=== PATIENT | female | born 1995 | race Caucasian/White ===

== ENCOUNTER 2023-04-11 16:11 | Emergency (ER) | payer OTHER ==
[2023-04-11 16:44] VITALS: RESP 20; TEMP 98.2
[2023-04-11] MEDS ORDERED: Zofran 4 MG/2 ML VIAL IV ONE (17:04)
[2023-04-11] MEDS ORDERED: MORPHINE SULFATE 4 MG INJ IV ONE (17:04)
[2023-04-11] MEDS ORDERED: Sodium Chloride 0.9% 1000 ML 1,000 ML IV STA (17:04)
[2023-04-11] MEDS ORDERED: Zofran 4 MG/2 ML VIAL ONE (17:13)
[2023-04-11] MEDS ORDERED: MORPHINE SULFATE 4 MG INJ ONE (17:13)
[2023-04-11] MEDS ORDERED: Sodium Chloride 0.9% 1000 ML 1,000 ML ONE (17:14)
--- NOTE | 2023-04-11 17:17 | ERPHSYRPT ---
- History of Present Illness Source: patient Exam Limitations: no limitations Patient Subjective Stated Complaint: PT states "I have not pee'd for two days. It feels like I need to but I cannot. I am having pain on my right belly." Triage Nursing Assessment: Pt presented alert and oriented X 3, skin pwd Pt ambulates with an upright steady gait, able to speak in clear full sentences. Hx Tetanus, Diphtheria Vaccination/Date Given: No Hx Influenza Vaccination/Date Given: No Hx Pneumococcal Vaccination/Date Given: No Immunizations Up to Date: No <ARIANNA BHAKTA - Last Filed: 04/11/23 17:14> <KARISSA BLAND - Last Filed: 04/11/23 20:44> - History of Present Illness Time Seen by Provider: 04/11/23 16:55 Physician History: Patient is here for lower abdominal pain. Started 2 to 3 days ago. Patient states that she has had difficulty urinating for 2 days. Patient does not bel ieve that she is . No falls or other trauma. Patient states that she did recently get put on a new bipolar medication. Patient does have a flat affect as I discussed her ER visit today with her. (ARIANNA BHAKTA) Allergies/Adverse Reactions: No Known Drug Allergies Allergy (Verified 04/11/23 16:43) Home Medications: Citalopram Hydrobromide [Citalopram HBr] 10 mg PO DAILY 04/11/23 [History] Omeprazole 40 mg PO DAILY 04/11/23 [History] Zolpidem Tartrate 5 mg [Ambien 5 MG Tablet] 5 mg PO HS 04/11/23 [History] Travel Risk - International Travel Have you traveled outside of the country in past 3 weeks: No - Coronavirus Screening Are you exhibiting any of the following symptoms?: No Close contact with a COVID-19 positive Pt in past 14-21 Days: No - Vaccine Status Have you recieved a Covid-19 vaccination: Yes 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 - Vaccination Dates Dates if Unknown: 2020 <ARIANNA BHAKTA - Last Filed: 04/11/23 17:14> - Review of Systems Constitutional: No Fever, No Chills Eyes: No Symptoms Ears, Nose, & Throat: No Symptoms Respiratory: No Cough, No Dyspnea Cardiac: No Chest Pain, No Edema, No Syncope Abdominal/Gastrointestinal: Abdominal Pain, No Nausea, No Vomiting, No Diarrhea Genitourinary Symptoms: Dysuria Musculoskeletal: No Back Pain, No Neck Pain Skin: No Rash Neurological: No Dizziness, No Focal Weakness, No Sensory Changes Psychological: No Symptoms Endocrine: No Symptoms All Other Systems: Reviewed and Negative <ARIANNA BHAKTA - Last Filed: 04/11/23 17:14> - Past Medical History Pertinent Past Medical History: Yes Psycho-Social History: Bipolar - Past Surgical History Past Surgical History: No - Social History Smoking Status: Current every day smoker How long have you smoked: years Exposure to second hand smoke: Yes Drug Use: none Patient Lives Alone: No - Female History Hx Last Menstrual Period: 03/20/2023 Hx Now: No <ARIANNA BHAKTA - Last Filed: 04/11/23 17:14> - Physical Exam General Appearance: no apparent distress, alert Eye Exam: PERRL/EOMI, eyes nml inspection Ears, Nose, Throat Exam: normal ENT inspection, TMs normal, pharynx normal, moist mucous membranes Neck Exam: normal inspection, non-tender, supple, full range of motion Respiratory Exam: normal breath sounds, lungs clear, No respiratory distress Cardiovascular Exam: regular rate/rhythm, normal heart sounds, normal peripheral pulses Gastrointestinal/Abdomen Exam: soft, normal bowel sounds, tenderness, other (Very mild lower abdominal tenderness to palpation without rebound or guarding), No mass Back Exam: normal inspection, normal range of motion, No CVA tenderness, No vertebral tenderness Extremity Exam: normal inspection, normal range of motion, pelvis stable Neurologic Exam: alert, oriented x 3, cooperative, normal mood/affect, nml cerebellar function, nml station & gait, sensation nml, No motor deficits Skin Exam: normal color, warm, dry, No rash Lymphatic Exam: No adenopathy SpO2: 95 <ARIANNA BHAKTA - Last Filed: 04/11/23 17:14> - Nursing Vital Signs Nursing Vital Signs: Initial Vital Signs Temperature 98.2 F 04/11/23 16:38 Pulse Rate 75 04/11/23 16:38 Respiratory Rate 20 04/11/23 16:38 Blood Pressure 126/79 04/11/23 16:38 O2 Sat by Pulse Oximetry 95 04/11/23 16:38 Pain Scale Pain Intensity 8 - Course Nursing assessment & vital signs reviewed: Yes <ARIANNA BHAKTA - Last Filed: 04/11/23 17:14> - CT Exams Abdomen/Pelvis CT Interpretation: Negative, Other (Reviewed by me) <KARISSA BLAND - Last Filed: 04/11/23 20:44> Ordered Tests: Active Orders 24 hr Category Date Time Status IV Insertion STAT Care 04/11/23 17:04 Active NPO (ED) STAT Care 04/11/23 17:04 Active ABDOMEN AND PELVIS W CONTRAST [CT] Stat Exams 04/11/23 17:05 Taken CBC W DIFF Stat Lab 04/11/23 17:04 Completed CMP Stat Lab 04/11/23 17:04 Completed HCG QUALITATIVE, SERUM Stat Lab 04/11/23 Completed UA W/RFX UR CULTURE Stat Lab 04/11/23 19:30 Completed Urine Triage Profile Stat Lab 04/11/23 19:30 Completed Medication Summary Discontinued Medications Generic Name Dose Route Start Last Admin Trade Name Freq PRN Reason Stop Dose Admin Sodium Chloride 1,000 mls @ 999 mls/hr 04/11/23 17:04 04/11/23 18:43 Sodium Chloride 0.9% 1000 Ml IV 04/11/23 18:04 Infused .Q1H1M STA Infusion Sodium Chloride Confirm 04/11/23 17:14 Sodium Chloride 0.9% 1000 Ml Administered 04/11/23 17:15 Dose 1,000 mls @ ud .ROUTE .STK-MED ONE Metoclopramide HCl 10 mg 04/11/23 20:14 04/11/23 20:22 Metoclopramide Hcl 10 Mg/2 Ml Vial IV 04/11/23 20:15 10 mg STAT ONE Administration Metoclopramide HCl Confirm 04/11/23 20:21 Metoclopramide Hcl 10 Mg/2 Ml Vial Administered 04/11/23 20:22 Dose 10 mg .ROUTE .STK-MED ONE Morphine Sulfate 4 mg 04/11/23 17:04 04/11/23 17:16 Morphine Sulfate 4 Mg/Ml Injection IV 04/11/23 17:05 4 mg STAT ONE Administration Morphine Sulfate Confirm 04/11/23 17:13 Morphine Sulfate 4 Mg/Ml Injection Administered 04/11/23 17:14 Dose 4 mg .ROUTE .STK-MED ONE Ondansetron HCl 4 mg 04/11/23 17:04 04/11/23 17:17 Ondansetron Hcl 4 Mg/2 Ml Vial IV 04/11/23 17:05 4 mg STAT ONE Administration Ondansetron HCl Confirm 04/11/23 17:13 Ondansetron Hcl 4 Mg/2 Ml Vial Administered 04/11/23 17:14 Dose 4 mg .ROUTE .STK-MED ONE Lab/Rad Data: Laboratory Result Diagrams 04/11/23 17:04 04/11/23 17:04 Laboratory Results 04/11/23 04/11/23 04/11/23 Range/Units Unknown 19:30 19:30 WBC (4.0-10.5) x10^3/uL RBC (4.1-5.4) x10^6/uL Hgb (12.0-16.0) g/dL Hct (35-47) % MCV (78-100) fL MCH (26-32) pg MCHC (32-36) g/dL RDW (11.5-14.0) % Plt Count (150-450) x10^3/uL MPV (7.5-11.0) fL Gran % (36.0-66.0) % Immature Gran % (Auto) (0.00-0.4) % Nucleat RBC Rel Count (0.00-0.1) % Eos # (Auto) (0-0.5) x10^3/uL Immature Gran # (Auto) (0.00-0.03) x10^3u/L Absolute Lymphs (auto) (1.0-4.6) x10^3/uL Absolute Monos (auto) (0.0-1.3) x10^3/uL Absolute Nucleated RBC (0.00-0.01) x10^3u/L Lymphocytes % (24.0-44.0) % Monocytes % (0.0-12.0) % Eosinophils % (0.00-5.0) % Basophils % (0.0-0.4) % Absolute Granulocytes (1.4-6.9) x10^3/uL Basophils # (0-0.4) x10^3/uL Sodium (137-145) mmol/L Potassium (3.5-5.1) mmol/L Chloride (98-107) mmol/L Carbon Dioxide (22-30) mmol/L Anion Gap (5-15) MEQ/L BUN (7-17) mg/dL Creatinine (0.52-1.04) mg/dL Estimated GFR ML/MIN Glucose (74-106) mg/dL Calcium (8.4-10.2) mg/dL Total Bilirubin (0.2-1.3) mg/dL AST (14-36) U/L ALT (0-35) U/L Alkaline Phosphatase (38-126) U/L Serum Total Protein (6.3-8.2) g/dL Albumin (3.5-5.0) g/dL Serum HCG, Qual NEGATIVE (NEGATIVE) Urine Color Yellow (Yellow) Urine Appearance Clear (Clear) Urine pH 5.5 (4.6-8.0) Ur Specific [place] >=1.030 A (1.005-1.030) Urine Protein Negative (Negative) Urine Glucose (UA) Negative (Negative) mg/dL Urine Ketones 15 A (Negative) Urine Blood Negative (Negative) Urine Nitrite Negative (Negative) Urine Bilirubin Negative (Negative) Urine Urobilinogen 1.0 A (0.2) mg/dL Ur Leukocyte Esterase Negative (Negative) U Hyaline Cast (Auto) NONE SEEN (0-2) /LPF Urine Microscopic RBC 0-2 (0-5) /HPF Urine Microscopic WBC 0-2 (0-5) /HPF Ur Epithelial Cells None Seen (None Seen) /HPF Urine Bacteria None Seen (None Seen) /HPF Urine Culture Reflexed NO (NO) Urine Opiates Level POSITIVE (NEGATIVE) Ur Methadone NEGATIVE (NEGATIVE) Urine Barbiturates NEGATIVE (NEGATIVE) Ur Phencyclidine (PCP) NEGATIVE (NEGATIVE) Urine Amphetamine NEGATIVE (NEGATIVE) U Benzodiazepine Level NEGATIVE (NEGATIVE) Urine Cocaine NEGATIVE (NEGATIVE) Urine Marijuana (THC) NEGATIVE (NEGATIVE) 04/11/23 04/11/23 Range/Units 17:04 17:04 WBC 8.4 (4.0-10.5) x10^3/uL RBC 4.85 (4.1-5.4) x10^6/uL Hgb 14.3 (12.0-16.0) g/dL Hct 42.6 (35-47) % MCV 87.8 (78-100) fL MCH 29.5 (26-32) pg MCHC 33.6 (32-36) g/dL RDW 12.6 (11.5-14.0) % Plt Count 219 (150-450) x10^3/uL MPV 11.4 H (7.5-11.0) fL Gran % 63.5 (36.0-66.0) % Immature Gran % (Auto) 0.4 (0.00-0.4) % Nucleat RBC Rel Count 0.0 (0.00-0.1) % Eos # (Auto) 0.20 (0-0.5) x10^3/uL Immature Gran # (Auto) 0.03 (0.00-0.03) x10^3u/L Absolute Lymphs (auto) 2.08 (1.0-4.6) x10^3/uL Absolute Monos (auto) 0.71 (0.0-1.3) x10^3/uL Absolute Nucleated RBC 0.00 (0.00-0.01) x10^3u/L Lymphocytes % 24.8 (24.0-44.0) % Monocytes % 8.5 (0.0-12.0) % Eosinophils % 2.4 (0.00-5.0) % Basophils % 0.4 (0.0-0.4) % Absolute Granulocytes 5.35 (1.4-6.9) x10^3/uL Basophils # 0.03 (0-0.4) x10^3/uL Sodium 138 (137-145) mmol/L Potassium 4.3 (3.5-5.1) mmol/L Chloride 99 (98-107) mmol/L Carbon Dioxide 25 (22-30) mmol/L Anion Gap 17.9 H (5-15) MEQ/L BUN 29 H (7-17) mg/dL Creatinine 1.08 H (0.52-1.04) mg/dL Estimated GFR > 60.0 ML/MIN Glucose 86 (74-106) mg/dL Calcium 9.0 (8.4-10.2) mg/dL Total Bilirubin 0.40 (0.2-1.3) mg/dL AST 24 (14-36) U/L ALT 38 H (0-35) U/L Alkaline Phosphatase 52 (38-126) U/L Serum Total Protein 8.3 H (6.3-8.2) g/dL Albumin 4.9 (3.5-5.0) g/dL Serum HCG, Qual (NEGATIVE) Urine Color (Yellow) Urine Appearance (Clear) Urine pH (4.6-8.0) Ur Specific [place] (1.005-1.030) Urine Protein (Negative) Urine Glucose (UA) (Negative) mg/dL Urine Ketones (Negative) Urine Blood (Negative) Urine Nitrite (Negative) Urine Bilirubin (Negative) Urine Urobilinogen (0.2) mg/dL Ur Leukocyte Esterase (Negative) U Hyaline Cast (Auto) (0-2) /LPF Urine Microscopic RBC (0-5) /HPF Urine Microscopic WBC (0-5) /HPF Ur Epithelial Cells (None Seen) /HPF Urine Bacteria (None Seen) /HPF Urine Culture Reflexed (NO) Urine Opiates Level (NEGATIVE) Ur Methadone (NEGATIVE) Urine Barbiturates (NEGATIVE) Ur Phencyclidine (PCP) (NEGATIVE) Urine Amphetamine (NEGATIVE) U Benzodiazepine Level (NEGATIVE) Urine Cocaine (NEGATIVE) Urine Marijuana (THC) (NEGATIVE) - Progress Progress: improved <ARIANNA BHAKTA - Last Filed: 04/11/23 17:14> - Progress Progress: improved <KARISSA BLAND - Last Filed: 04/11/23 20:44> - Progress Progress Note: 04/11/23 17:16 differential diagnosis includes kidney stone, compression fracture, infection, UTI, triple AAA - basic labs including: CBC, lipase, CMP, UA, urine test - insert IV for fluids, pain meds, nausea control - consider imaging: CT ab/pelvis Patient feels improved with medication. Transfer of care to Dr. Bland at 6 PM. He will follow-up on all labs and imaging, reexamine the patient. Disposition per this. (ARIANNA BHAKTA) Medical Desision Making - Independent Historian Additional History obtained from: Mother - Diagnostic Testing Diagnostic test were ordered, analyzed, and reviewed by me: Yes Radiological Interpretation: Reviewed by me - Risk of complications Low Risk: Low risk of morbidity from additional dx testing or treatment <KARISSA BLAND - Last Filed: 04/11/23 20:44> - Departure Critical Care Time: No <ARIANNA BHAKTA - Last Filed: 04/11/23 17:14> - Departure Departure Disposition: Home <KARISSA BLAND - Last Filed: 04/11/23 20:44> - Departure Clinical Impression: Abdominal pain Condition: Stable Prescriptions: Metoclopramide HCl [Reglan] 10 mg PO Q6H 3 Days #12 tablet
[2023-04-11 17:42] LABS: Absolute Neutrophil Ct (ANC) 5.35 x10^3/uL (1.4-6.9); BASOPHIL % 0.4 % (0.0-0.4); Basophil (Absolute #) 0.03 x10^3/uL (0-0.4); Eosinophil % 2.4 % (0.00-5.0); Hematocrit 42.6 % (35-47); Hemoglobin 14.3 g/dL (12.0-16.0); IMMATURE GRAN # 0.03 x10^3u/L (0.00-0.03); IMMATURE GRAN % 0.4 % (0.00-0.4); Lymphocyte (Absolute #) 2.08 x10^3/uL (1.0-4.6); Lymphocytes % 24.8 % (24.0-44.0); Mean Cell Volume 87.8 fL (78-100); Mean Corpuscular Hemoglobin 29.5 pg (26-32); Mean Corpuscular Hgb Concent. 33.6 g/dL (32-36); Mean Platelet Volume 11.4 fL (7.5-11.0); Monocyte (Absolute #) 0.71 x10^3/uL (0.0-1.3); Monocytes % 8.5 % (0.0-12.0); Neutrophil % 63.5 % (36.0-66.0); Platelet Count 219 x10^3/uL (150-450); Red Blood Count 4.85 x10^6/uL (4.1-5.4); Red Cell Distribution Width 12.6 % (11.5-14.0); White Blood Count 8.4 x10^3/uL (4.0-10.5)
[2023-04-11 17:58] LABS: ALBUMIN 4.9 g/dL (3.5-5.0); ALKALINE PHOSPHATASE 52 U/L (38-126); ANION GAP 17.9 MEQ/L (5-15); BLOOD UREA NITROGEN 29 mg/dL (7-17); CHLORIDE 99 mmol/L (98-107); Carbon Dioxide 25 mmol/L (22-30); Creatinine 1 1.08 mg/dL (0.52-1.04); EST GLOMERULAR FILTRATION RATE > 60.0 ML/MIN; Glucose 86 mg/dL (74-106); Potassium 4.3 mmol/L (3.5-5.1); SGOT/AST 24 U/L (14-36); SGPT/ALT 38 U/L (0-35); SODIUM 138 mmol/L (137-145); Total Protein 8.3 g/dL (6.3-8.2)
[2023-04-11 17:58] LABS: HCG SERUM TEST NEGATIVE (NEGATIVE)
[2023-04-11 19:48] LABS: Appearance Clear (Clear); Bacteria None Seen /HPF (None Seen); Bilirubin Negative (Negative); Blood Negative (Negative); Epithelial Cells None Seen /HPF (None Seen); Glucose, Urine Negative (Negative); Hyaline Casts NONE SEEN /LPF (0-2); Ketones 15 (Negative); Leukocyte Esterase Negative (Negative); Nitrite Negative (Negative); Ph 5.5 (4.6-8.0); Protein,Urine Dip Negative (Negative); RBC 0-2 /HPF (0-5); Specific Gravity >=1.030 (1.005-1.030); WBC 0-2 /HPF (0-5)
[2023-04-11 19:58] LABS: Amphetamine,Urine NEGATIVE (NEGATIVE); Barbiturate,Urine NEGATIVE (NEGATIVE); Benzodiazepine,Urine NEGATIVE (NEGATIVE); Cocaine,Urine NEGATIVE (NEGATIVE); Methadone,Urine NEGATIVE (NEGATIVE); Opiate,Urine POSITIVE (NEGATIVE); PCP,Urine NEGATIVE (NEGATIVE); THC,Urine NEGATIVE (NEGATIVE)
[2023-04-11] MEDS ORDERED: Reglan 10 MG/2 ML IV ONE (20:14)
[2023-04-11 20:19] LABS: ADD URINE CULTURE? NO (NO)
[2023-04-11] MEDS ORDERED: Reglan 10 MG/2 ML ONE (20:21)
[2023-04-11 20:45] VITALS: BP 118/76; PULSE 72; O2SAT 98
--- NOTE | 2023-04-12 08:36 | XRAY ---
Indication: Right lower quadrant pain. Multiple contiguous axial images obtained through the abdomen and pelvis using 80 cc Isovue 370 contrast. Comparison: None Lung bases clear. Heart not enlarged. Abdomen/pelvis slightly degraded by respiration artifact. Noncontrasted stomach and bowel loops appear nonobstructed. Appendix not visualized. No free fluid/air. Remaining liver, gallbladder, pancreas, spleen, adrenal glands, kidneys, ureters, bladder, uterus, and aorta are normal in CT appearance and attenuation. No pathologic retroperitoneal lymphadenopathy. Osseous structures intact. No ventral or inguinal hernias. Impression: Respiration artifact. Otherwise grossly negative CT abdomen/pelvis with contrast exam.
== END 2023-04-11 20:52 | disposition home or self-care (01) ==
LOC: ED 16:11
DX: R10.30 Lower abdominal pain, unspecified (principal); Z79.899 Other long term (current) drug therapy; Z72.0 Tobacco use
CPT/HCPCS: 36000; 36415; 74177; 80053; 80307; 81001; 84703; 85025; 96360; 96374; 96375; 99284; J2270; J2405